=== PATIENT | male | born 1990 | race Caucasian/White ===

== ENCOUNTER 2017-05-27 22:55 | Emergency (ER) | payer OTHER ==
[~2017-05-27] VITALS: Ht 170.2 cm; Wt 88.5 kg
[2017-05-27 22:55] VITALS: BP 146/90
[2017-05-27] MEDS ORDERED: PRED-220 PO (23:30)
--- NOTE | 2017-05-27 23:30 | PHYS DOC ---
Past History Smoking: Cigarettes Adult General Chief Complaint Chief Complaint: ITCHING HPI HPI Patient is a 26 year old male who presents with poison sybil. He states it's "all over." Itching constantly. No involvement in mouth. No difficulty breathing. Review of Systems Review of Systems Integument: POS rash Allergies Allergies Allergies Coded Allergies Type Severity Reaction Last Updated Verified No Known Drug Allergies 05/27/17 No Physical Exam Physical Exam Constitutional: Well developed, well nourished, no acute distress, non-toxic appearance. Lungs & Thorax: Bilateral breath sounds clear to auscultation Skin: Warm, dry, no erythema, Scattered areas involving face, extremities and trunk with maculopapular excoriated lesions; no drainage. Course & Med Decision Making Course & Med Decision Making Will treat with prednisone. Gave patient info re: zanaflex topical that can be used as well. Dragon Disclaimer Dragon Disclaimer This chart was dictated in whole or in part using Voice Recognition software in a busy, high-work load, and often noisy Emergency Department environment. It may contain unintended and wholly unrecognized errors or omissions. Departure Departure: Impression: Primary Impression: Contact dermatitis Disposition: HOME, SELF-CARE Condition: STABLE Referrals: DODIE CANAS MD (PCP) Patient Instructions: Poison Sybil Scripts Prednisone (PREDNISONE) 10 Mg Tablet 10 MG PO UD for PREDNISONE TAPER, #39 TAB 0 Refills Take 3 tablets by mouth twice a day for 3 days, then take 2 tablets by mouth twice a day for 3 days, then take 1 tablet by mouth twice a day for 3 days, then take 1 tablet by mouth daily x 3 days, then stop. Prov: CARIDAD HEWITT MD 05/27/17 Problem Qualifiers Primary Impression: Contact dermatitis Contact dermatitis type: allergic Contact dermatitis trigger: non-food plants Qualified Codes: L23.7 - Allergic contact dermatitis due to plants, except food CARIDAD HEWITT MD May 27, 2017 23:30
== END 2017-05-27 23:32 | disposition home or self-care (01) ==
LOC: ER 22:55
DX: L23.7 Allergic contact dermatitis due to plants, except food (principal); F17.210 Nicotine dependence, cigarettes, uncomplicated
CPT/HCPCS: 99283